=== PATIENT | female | born 1980 ===

== ENCOUNTER 2018-09-03 12:54 | Inpatient (IN) | payer OTHER ==
[~2018-09-03] VITALS: Ht 160 cm; Wt 3.2 kg
[2018-09-03] MEDS ORDERED: SYNTHROID50 MCG PO (14:39)
[2018-09-03] MEDS ORDERED: MAXFE CAPLET1 EACH PO (14:40)
[2018-09-03] MEDS ORDERED: PRENATAL TABLE1 EAC1 PO (14:41)
== END 2018-09-08 14:08 | DRG 786 ==
LOC: SURG-SUITE 12:54 → LDR 12:54 → SURG-SUITE 09-05 19:10
PROVIDERS: ADMIT Obstetrics & Gynecology Maternal & Fetal Medicine
PROC: 4A1HXCZ Monitoring of Products of Conception, Cardiac Rate, External Approach (ICD-10-PCS; 2018-09-03)
PROC: BW40ZZZ Ultrasonography of Abdomen (ICD-10-PCS; 2018-09-03)
PROC: 4A033R1 Measurement of Arterial Saturation, Peripheral, Percutaneous Approach (ICD-10-PCS; 2018-09-05)
PROC: 10D00Z1 Extraction of Products of Conception, Low, Open Approach (ICD-10-PCS; principal; 2018-09-05 17:00)
DX: O33.8 Maternal care for disproportion of other origin (principal); K83.1 Obstruction of bile duct; O26.613 Liver and biliary tract disorders in pregnancy, third trimester; Z3A.37 37 weeks gestation of pregnancy; Z37.0 Single live birth